=== PATIENT | female | born 1970 | race Caucasian/White ===

== ENCOUNTER 2021-04-28 13:36 | Outpatient (CLI) | payer OTHER ==
[~2021-04-28 13:36] MED LIST: PERCOCET 5/3251 TAB PO
== END 2021-04-28 13:37 | disposition home or self-care (01) ==
LOC: LAB 13:36
PROVIDERS: ATTEND Specialist
DX: Z11.3 Encounter for screening for infections with a predominantly sexual mode of transmission (principal)